=== PATIENT | female | born 1940 | race Caucasian/White ===

== ENCOUNTER 2020-02-09 07:38 | Outpatient (CLI) | payer MEDICARE, SELFPAY ==
[2020-02-09 08:13] LABS: Hematocrit 38.2 % (36-46); Platelet Count 208 X10^3/uL (150-400)
[2020-02-09 08:20] LABS: Prothrombin Time 11.5 SECONDS (10.1-12.7)
[2020-02-09 08:37] VITALS: BP 144/74; PULSE 74; RESP 16; TEMP 36.3; O2SAT 97; BMI 29.0
--- NOTE | 2020-02-09 09:02 | SUR.PREOP ---
Dr Sidhu called for pt, pt wanting to take her 1000mg of tylenol. Dr Sidhu stated it was ok, pt given small drink of water . JOSELUIS Pham iin to see ptReynaldo in to take pt via stretcher to DI.
[2020-02-09 09:22] VITALS: BP 173/93; PULSE 93; RESP 16; O2SAT 99
[2020-02-09 09:45] VITALS: BP 140/72; PULSE 66; RESP 16; TEMP 36.7; O2SAT 98
--- NOTE | 2020-02-09 16:05 | SUR.PHASEII ---
Late entry: Pt returned to phase two, procedure not able to be preformed due to inability of pt to stay in position needed. Pt left when dressed.
== END 2020-02-09 10:00 | disposition home or self-care (01) ==
PROVIDERS: Family Provider Family Medicine; PCP Family Medicine; Referring Provider Family Medicine; Visit Provider Orthopaedic Surgery
DX: M43.06 Spondylolysis, lumbar region (principal); M17.0 Bilateral primary osteoarthritis of knee; Z53.9 Procedure and treatment not carried out, unspecified reason
CPT/HCPCS: 62304; 36415; 72132; 85014; 85049; 85610

== ENCOUNTER → 2021-03-11 16:17 | Outpatient (CLI) | payer MEDICARE, SELFPAY ==
--- NOTE | 2021-03-11 16:18 | DI.RAD.S_ITS ---
PROCEDURE: XR FINGER RT MIN 2V INDICATIONS: puncture wound 1st digit TECHNIQUE: AP hand, 2 views of the 1st finger(s) acquired. COMPARISON: None. FINDINGS: Bones: No fractures or dislocations. No suspicious bony lesions. Severe 1st CMC joint space narrowing with periarticular osteophyte formation, subchondral sclerosis and cystic change. Soft tissues: No suspicious soft tissue calcifications. IMPRESSION: 1. 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 2. Although no bony erosions are identified, plain film radiography is relatively insensitive in the acute phases of osteomyelitis and may not demonstrate radiographic changes for 15 days. If acute osteomyelitis is of clinical concern, nuclear medicine regional bone scan or MRI is recommended. Dictated by: Ilan Alonzo [facility] Interpreted: Liudmila Goel MD on 03/11/2021 at 16:44 Transcribed by: MAGGIE on 03/11/2021 at 16:44 Approved by: Liudmila Goel M.D. on 03/11/2021 at 16:59
== END ==
PROVIDERS: Family Provider Family Medicine; PCP Family Medicine; Referring Provider Nurse Practitioner Family; Visit Provider Nurse Practitioner Family
DX: S60.932A Unspecified superficial injury of left thumb, initial encounter (principal); M18.11 Unilateral primary osteoarthritis of first carpometacarpal joint, right hand; X58.XXXA Exposure to other specified factors, initial encounter
CPT/HCPCS: 73140